=== PATIENT | male | born 1995 | race Caucasian/White ===

== ENCOUNTER 2022-03-20 22:31 | Inpatient (IN) ==
[2022-03-20 23:00] LABS: Bilirubin,Urine Negative (Negative); Blood,Urine Negative (Negative); Clarity,Urine Clear (Clear); Color,Urine Light-Yellow (Yellow); Glucose,Urine (UA) Normal (Normal); Ketones,Urine Negative (Negative); Leukocyte Esterase,Urine Negative (Negative); Nitrite,Urine Negative (Negative); Protein,Urine Negative (Neg-Trace); Urobilinogen,Urine Normal (Normal)
[2022-03-20 23:01] LABS: Basophils # 0.1 K/mcL (0.0-0.2); Basophils % 0.7 %; Eosinophils # 0.1 K/mcL (0.0-0.6); Eosinophils % 1.8 %; Hematocrit 44.1 % (37.5-50.1); Hemoglobin 15.2 g/dL (12.9-16.9); Immature Granulocytes % 0.3 % (0-4); Lymphocytes # 2.3 K/mcL (0.6-4.6); Lymphocytes % 34.5 %; Mean Corpuscular HGB Conc 34.5 g/dL (31.6-35.5); Mean Corpuscular Volume 89.8 fL (83.0-100.0); Mean Platelet Volume 9.2 fL (9.4-12.4); Monocytes # 0.8 K/mcL (0.0-1.3); Monocytes % 11.3 %; Neutrophils # 3.5 K/mcL (1.6-8.9); Platelet Count 213 K/mcL (140-400); Red Blood Count 4.91 M/mcL (4.19-5.50); Red Cell Distribution Width 13.1 % (11.5-14.5); Segmented Neutrophils % 51.4 %; White Blood Count 6.8 K/mcL (4.3-11.1)
[2022-03-20 23:11] LABS: Amphetamine Screen,Urine Negative ng/mL (Cutoff=1000); Barbiturate Screen,Urine Negative ng/mL (Cutoff=200); Benzodiazepines Screen,Urine Negative ng/mL (Cutoff=200); Cannabinoid Screen,Urine Negative ng/mL (Cutoff = 50); Cocaine Screen,Urine Negative ng/mL (Cutoff= 300); Opiate Screen,Urine Negative ng/mL (Cutoff=300); Phencyclidine Screen,Urine Negative ng/mL (Cutoff=25)
[2022-03-20 23:23] LABS: Acetaminophen < 10 mcg/mL (10-20); BUN/Creatinine Ratio 17 (6-26); Blood Urea Nitrogen 10 mg/dL (6-20); Calcium 9.8 mg/dL (8.6-10.3); Carbon Dioxide 23 mEq/L (23-29); Chloride 106 mEq/L (98-107); Ethanol < 10 mg/dL (Less than 10); Glucose 87 mg/dL (70-105); Osmolality,Calculated 280 (280-300); Potassium 3.7 mEq/L (3.5-5.1); Salicylate < 2.5 mg/dL (15.0-30.0); Sodium 136 mEq/L (136-145)
[2022-03-20 23:38] LABS: Influenza A PCR Negative (Negative); Influenza B PCR Negative (Negative); Resp. Syncytial Virus PCR Negative (Negative)
[2022-03-20 23:39] LABS: SARS-CoV-2 by PCR (In House) Negative (Negative)
[2022-03-21] MEDS ORDERED: Ibuprofen 400 MG TABLET PO PRN (01:21)
[2022-03-21] MEDS ORDERED: haloperidoL 5 MG TABLET PO PRN (01:21)
[2022-03-21] MEDS ORDERED: *HR* LORazepam 1 MG TABLET PO PRN (01:21)
[2022-03-21] MEDS ORDERED: Haloperidol Lactate 5 MG/ML VIAL IM PRN (01:21)
[2022-03-21] MEDS ORDERED: hydrOXYzine pamoate 25 MG CAPSULE PO PRN (01:21)
[2022-03-21] MEDS ORDERED: *HR* LORazepam 2 MG/ML VIAL IM PRN (01:21)
[2022-03-21] MEDS: Nicotine 2 MG GUM BC PRN ×4 (12:29→20:18)
[2022-03-21] MEDS: Naltrexone HCl 50 MG TABLET PO SCH (13:57)
[2022-03-21] MEDS: OLANZapine 10 MG TAB.RAPDIS PO SCH (20:18)
[2022-03-21] MEDS: traZODone 50 MG TABLET PO PRN (20:21)
[2022-03-22] MEDS: Nicotine 2 MG GUM BC PRN ×5 (09:14→21:08)
[2022-03-22] MEDS: Naltrexone HCl 50 MG TABLET PO SCH (09:14)
[2022-03-22] MEDS: traZODone 50 MG TABLET PO PRN (21:07)
[2022-03-22] MEDS: OLANZapine 10 MG TAB.RAPDIS PO SCH (21:07)
[2022-03-23] MEDS: Nicotine 2 MG GUM BC PRN ×2 (08:54→12:31)
[2022-03-23] MEDS: Naltrexone HCl 50 MG TABLET PO SCH (08:54)
[2022-03-23] MEDS: Nicotine 21 MG PATCH.TD24 TD SCH (14:35)
[2022-03-23] MEDS: traZODone 50 MG TABLET PO PRN (21:49)
[2022-03-23] MEDS: OLANZapine 10 MG TAB.RAPDIS PO SCH (21:49)
[2022-03-24] MEDS: Naltrexone HCl 50 MG TABLET PO SCH (08:21)
[2022-03-24] MEDS: Nicotine 21 MG PATCH.TD24 TD SCH (08:21)
[2022-03-24] MEDS: OLANZapine 10 MG TAB.RAPDIS PO SCH (20:19)
[2022-03-24] MEDS: traZODone 50 MG TABLET PO PRN (21:14)
[2022-03-25] MEDS: Naltrexone HCl 50 MG TABLET PO SCH (08:30)
[2022-03-25] MEDS: Nicotine 21 MG PATCH.TD24 TD SCH (08:30)
[2022-03-25 08:36] VITALS: O2SAT 96
[2022-03-25] MEDS: OLANZapine 10 MG TAB.RAPDIS PO SCH (20:26)
[2022-03-26] MEDS: Naltrexone HCl 50 MG TABLET PO SCH (08:17)
[2022-03-26] MEDS: Nicotine 21 MG PATCH.TD24 TD SCH (08:17)
[2022-03-26] MEDS: OLANZapine 10 MG TAB.RAPDIS PO SCH (20:30)
[2022-03-27] MEDS: Nicotine 21 MG PATCH.TD24 TD SCH (08:27)
[2022-03-27] MEDS: Naltrexone HCl 50 MG TABLET PO SCH (08:29)
[2022-03-27] MEDS: OLANZapine 10 MG TAB.RAPDIS PO SCH (19:57)
[2022-03-27] MEDS: traZODone 50 MG TABLET PO PRN (20:42)
[2022-03-27 21:08] VITALS: TEMP 98.1
[2022-03-28] MEDS: Naltrexone HCl 50 MG TABLET PO SCH (08:45)
[2022-03-28] MEDS: Nicotine 21 MG PATCH.TD24 TD SCH (08:45)
[2022-03-28 09:16] VITALS: BP 118/78; PULSE 76
[2022-03-28] MEDS ORDERED: Flu Vac QV 22-23 (6MOS UP)/PF 0.5 ML SYRINGE IM ONE (12:56)
== END 2022-03-28 14:37 | DRG 752 ==
LOC: EMEROOARM 22:31 → 1ANU 03-21 01:42
PROVIDERS: ADMIT Psychiatry & Neurology Neurology; ATTEND Psychiatry & Neurology Neurology